=== PATIENT | male | born 1985 | race Caucasian/White ===

== ENCOUNTER 2019-06-01 15:06 | Emergency (ER) | payer SELFPAY ==
[2019-06-01] MEDS: LIDOCAINE 1% (MDV) 20 ML INJ SC (18:16)
[2019-06-01] MEDS: CEFAZOLIN 1 GM INJ IM (18:16)
[2019-06-01] MEDS: HYDROCODONE/APAP (10/325) TAB PO (18:17)
[2019-06-01] MEDS: LIDOCAINE 0.5% (SDV) 50 ML INJ INFIL (18:44)
[2019-06-01] MEDS: DIPHTH/TET/ACEL PERTUSS (ADULT) 0.5 ML VIAL IM* (18:45)
== END 2019-06-01 19:38 | disposition home or self-care (01) ==
LOC: FTE 15:06
DX: S61.211A Laceration without foreign body of left index finger without damage to nail, initial encounter (principal); W23.0XXA Caught, crushed, jammed, or pinched between moving objects, initial encounter; Y92.89 Other specified places as the place of occurrence of the external cause; Z23 Encounter for immunization
CPT/HCPCS: 12002; 73130-LT; 90471; 90715; 96372; 99284-25